=== PATIENT | male | born 1970 ===

== ENCOUNTER 2018-02-19 23:49 | Inpatient (IN) | payer SELFPAY ==
[2018-02-20 01:48] LABS: BASO % 0.6 % (0.0-2.0); EOS # 0.1 K/uL (0.0-0.7); EOS % 1.8 % (0.0-4.0); HEMOGLOBIN 16.7 g/dL (12.0-18.0); LYMPH # 1.4 K/uL (1.0-4.3); LYMPH % 18.9 % (20.0-40.0); MEAN CORPUSCULAR HEMOGLOBIN 31.9 pg (27.0-31.0); MEAN CORPUSCULAR HGB CONC 32.5 g/dL (33.0-37.0); MONO # 0.4 K/uL (0.0-0.8); MONO % 4.8 % (0.0-10.0); NEUT # 5.4 K/uL (1.8-7.0); NEUT % 73.9 % (50.0-75.0); NRBC % 0.1 % (0.0-0.0); RBC 5.25 Mil/uL (4.40-5.90); WHITE BLOOD COUNT 7.3 K/uL (4.8-10.8)
--- NOTE | 2018-02-20 01:56 | ED PDOC ---
HPI: Chest Pain Time Seen by Provider: 02/20/18 00:26 Chief Complaint (Nursing): Chest Pain Chief Complaint (Provider): coughing up blood History Per: Patient History/Exam Limitations: no limitations Alleviating Factors: None Additional Complaint(s): 47 y/o Male with hx of Protein S deficiency on Xarelto who presents to ED c/o hemoptysis x 3 days. Pt states that he was diagnosed with PE and DVT while on vacation about 6 months ago in [place] at which time he underwent what he believes was an embolization. He presented with hemoptysis, mild SOB and Right sided posterior chest/back pain. He had CT with IV contrast and had anaphylaxis to the contrast at that time requiring intubation. He was started on coumadin but it was difficult to get his blood so he was switched to Xarelto [address] His chest pain had subsided but returned 3 days ago at the same time that he began having hemoptysis. He states it is worse with deep breathing. He has had several episodes of cough with hemoptysis since that time. Admits to intermittent palpitations but denies dizziness, syncope, substernal chest pain, hematemesis. He took Tylenol at about 12am for the chest pain. Past Medical History Vital Signs: Last Vital Signs Temp 98.4 F 02/19/18 23:53 Pulse 100 H 02/19/18 23:53 Resp 18 02/19/18 23:53 BP Pulse Ox 99 02/19/18 23:53 - Allergies Allergies/Adverse Reactions: Allergies Allergy/AdvReac Type Severity Reaction Status Date / Time Iodine and Iodide Containing Allergy ANAPHYLAXIS Verified 02/19/18 23:58 Produc Physical Exam - Reviewed Nursing Documentation Reviewed: Yes Vital Signs Reviewed: Yes - Physical Exam Appears: Positive for: Uncomfortable (actively having mild hemoptysis) Head Exam: Positive for: ATRAUMATIC Skin: Positive for: Normal Color Eye Exam: Positive for: Normal appearance Neck: Positive for: Normal Cardiovascular/Chest: Positive for: Regular Rate, Rhythm Respiratory: Positive for: Normal Breath Sounds (distant breath sounds) Gastrointestinal/Abdominal: Positive for: Normal Exam Back: Positive for: Normal Inspection Neurologic/Psych: Positive for: Alert, Oriented - Laboratory Results Result Diagrams: 02/20/18 01:44 02/20/18 01:44 - ECG O2 Sat by Pulse Oximetry: 99 Medical Decision Making Medical Decision Making: Chest CT FINDINGS: Multifocal ground glass densities in the left upper lobe and bilateral lower lobes. Normal unenhanced main pulmonary artery and right and left pulmonary arteries. Normal bilateral peripheral pulmonary arteries. Normal thoracic aorta and visualized great vessels. There is no demonstrated aortic aneurysm. Normal heart and pericardium. Normal mediastinum. Normal hilar regions. Normal visualized trachea and bronchi. The lungs are well expanded. Normal pulmonary parenchyma. Normal pleura. Normal chest wall structures. Normal osseous structures. IVC filter is seen. IMPRESSION: Multifocal faint ground glass densities in the left upper lobe and bilateral lower lobes. Findings can be secondary to aspiration of blood in this patient with a history of hemoptysis. Disposition - Disposition Forms: [employer] (Amharic)
[2018-02-20 01:57] LABS: ALB/GLOB RATIO 1.4 (1.0-2.1); ALBUMIN 4.7 g/dL (3.5-5.0); ALT/SGPT 25 U/L (21-72); AST/SGOT 32 U/L (17-59); BLOOD UREA NITROGEN 12 mg/dl (9-20); CALCIUM 9.7 mg/dL (8.4-10.2); GFR NON-AFRICAN AMERICAN > 60
[2018-02-20] MEDS ORDERED: Clindamycin in D5W 300 MG/50 ML BAG IVPB STA (03:40)
[2018-02-20] MEDS ORDERED: Piperacillin/Tazobact 3.375 GM in Sodium Chloride 0.9% 100 ML IVPB SCH (10:15)
[2018-02-20] MEDS ORDERED: Morphine 4 MG/ML VIAL ONE (11:47)
[2018-02-20 13:53] LABS: BASO # 0.1 K/uL (0.0-0.2); BASO % 0.9 % (0.0-2.0); EOS # 0.2 K/uL (0.0-0.7); EOS % 2.3 % (0.0-4.0); HEMOGLOBIN 15.6 g/dL (12.0-18.0); LYMPH # 1.2 K/uL (1.0-4.3); LYMPH % 17.3 % (20.0-40.0); MEAN CELL VOLUME 97.7 fl (80.0-94.0); MEAN CORPUSCULAR HEMOGLOBIN 31.9 pg (27.0-31.0); MEAN CORPUSCULAR HGB CONC 32.7 g/dL (33.0-37.0); MONO # 0.4 K/uL (0.0-0.8); MONO % 6.4 % (0.0-10.0); NEUT # 4.9 K/uL (1.8-7.0); NEUT % 73.1 % (50.0-75.0); NRBC % 0.2 % (0.0-0.0); RBC 4.89 Mil/uL (4.40-5.90); RED CELL DISTRIBUTION WIDTH 14.2 % (11.5-14.5); WHITE BLOOD COUNT 6.7 K/uL (4.8-10.8)
--- NOTE | 2018-02-20 14:23 | CT ---
Date of service: 02/20/2018 PROCEDURE: CT Chest without contrast HISTORY: hemoptysis COMPARISON: None available. TECHNIQUE: Contiguous axial images were obtained through the chest without intravenous contrast enhancement. Sagittal and coronal reconstructions were performed. Radiation dose: Total exam DLP = 574.09 mGy-cm. This CT exam was performed using one or more of the following dose reduction techniques: Automated exposure control, adjustment of the mA and/or kV according to patient size, and/or use of iterative reconstruction technique. FINDINGS: LUNGS: The lungs are well inflated. There is dependent atelectasis in the lung bases. There is a small calcified granuloma in the left lung base. There is multifocal patchy ground-glass attenuation in the left upper lobe. MEDIASTINUM: Unremarkable thoracic aorta. No aneurysm. Normal sized heart. Main pulmonary artery unremarkable. No vascular congestion. No lymphadenopathy. No aortic atherosclerotic calcification. PLEURA: No pleural fluid. No pneumothorax. BONES: No fracture. No destructive lesion. Multilevel degenerative changes in the lower thoracic spine. UPPER ABDOMEN: Grossly unremarkable. OTHER FINDINGS: Incompletely imaged is an IVC filter.. IMPRESSION: Multifocal patchy ground-glass attenuation in the left upper lobe which may represent nonspecific infection/inflammation, alveolar edema or pulmonary hemorrhage. Follow-up after medical management is recommended to ensure complete resolution. A preliminary report was provided by [facility]. There is addition of differential diagnosis in the impression. The final report is tagged to the PA review folder.
--- NOTE | 2018-02-20 15:42 | RAD ---
Date of service: 02/20/2018 HISTORY: hemoptysis, hx IVC filter-assess placement COMPARISON: None available. FINDINGS: BOWEL: Norm there is moderate amount of stool in the colon and rectum. No bowel dilatation. BONES: Normal. OTHER FINDINGS: An IVC filter remains in place. IMPRESSION: Constipation. Nonobstructive bowel gas pattern.
[2018-02-20] MEDS: Piperacillin/Tazobact 3.375 GM in Sodium Chloride 0.9% 100 ML IVPB SCH ×2 (16:16→21:00)
--- NOTE | 2018-02-20 16:31 | US ---
Date of service: 02/20/2018 PROCEDURE: Bilateral lower extremity venous duplex Doppler. HISTORY: hx of DVT/PE, on Xarelto COMPARISON: None available. TECHNIQUE: Bilateral common femoral, superficial femoral, popliteal and posterior tibial veins were evaluated. Flow was assessed with color Doppler, compressibility, assessment of phasic flow and augmentation response. FINDINGS: COMMON FEMORAL VEIN: Right CFV: Unremarkable. Left CFV: Unremarkable. SUPERFICIAL FEMORAL VEIN: Right SFV: Unremarkable. Left SFV: Unremarkable. POPLITEAL VEIN: Right Popliteal: Unremarkable. Left Popliteal: Unremarkable. POSTERIOR TIBIAL VEIN: Right PTV: Unremarkable. Left PTV: Unremarkable. OTHER FINDINGS: None. IMPRESSION: No evidence of deep venous thrombosis.
[2018-02-20] MEDS: Morphine 4 MG/ML VIAL IVP PRN ×2 (18:07→22:50)
--- NOTE | 2018-02-20 21:04 | CP.PCM.CON ---
History of Present Illness - History of Present Illness History of Present Illness: 47 year old male with a history of Past Patient History - Past Medical History & Family History Past Medical History?: Yes - Past Social History Smoking Status: Heavy Smoker > 10 Cigarettes Daily - CARDIAC Hx Cardiac Disorders: No - PULMONARY Hx Respiratory Disorders: Yes Hx Pulmonary Embolism: Yes - NEUROLOGICAL Hx Neurological Disorder: No - HEENT Hx HEENT Problems: No - RENAL Hx Chronic Kidney Disease: No - ENDOCRINE/METABOLIC Hx Endocrine Disorders: No - HEMATOLOGICAL/ONCOLOGICAL Hx Blood Disorders: Yes (protein S deficiency) Hx AIDS: No Hx Human Immunodeficiency Virus (HIV): No Other/Comment: DVT - INTEGUMENTARY Hx Dermatological Problems: No - MUSCULOSKELETAL/RHEUMATOLOGICAL Hx Musculoskeletal Disorders: No Hx Falls: No - GASTROINTESTINAL Hx Gastrointestinal Disorders: No - GENITOURINARY/GYNECOLOGICAL Hx Genitourinary Disorders: No - PSYCHIATRIC Hx Psychophysiologic Disorder: Yes Hx Anxiety: Yes Hx Substance Use: No - SURGICAL HISTORY Hx Surgeries: Yes Other/Comment: IVC filter insertion - ANESTHESIA Hx Anesthesia: Yes Hx Anesthesia Reactions: No Hx Malignant Hyperthermia: No Has any member of the family had a problem w/ anesthesia?: No Meds Allergies/Adverse Reactions: Allergies Allergy/AdvReac Type Severity Reaction Status Date / Time Iodine and Iodide Containing Allergy ANAPHYLAXIS Verified 02/19/18 23:58 Produc - Medications Medications: Current Medications Acetaminophen (Tylenol 325mg Tab) 650 mg PO Q6 PRN PRN Reason: Pain, Mild (1-3) Piperacillin Sod/Tazobactam (Sod 3.375 gm/ Sodium Chloride) 100 mls @ 100 mls/hr IVPB Q6 AFIA; Protocol Last Admin: 02/20/18 21:00 Dose: 100 mls/hr Morphine Sulfate (Morphine) 2 mg IVP Q4 PRN PRN Reason: Pain, severe (8-10) Last Admin: 02/20/18 18:07 Dose: 2 mg Morphine Sulfate (Morphine) 1 mg IVP Q4 PRN PRN Reason: Pain, moderate (4-7) Results - Vital Signs Recent Vital Signs: Last Vital Signs Temp 98.2 F 02/20/18 20:13 Pulse 63 02/20/18 20:13 Resp 18 02/20/18 20:13 BP 115/72 02/20/18 20:13 Pulse Ox 97 02/20/18 20:13 - Labs Result Diagrams: 02/21/18 04:30 02/21/18 04:30 Labs: Laboratory Results - last 24 hr 02/20/18 02/20/18 02/20/18 01:44 01:44 01:44 WBC 7.3 RBC 5.25 Hgb 16.7 Hct 51.5 H MCV 98.0 H MCH 31.9 H MCHC 32.5 L RDW 14.0 Plt Count 254 MPV 8.0 Neut % (Auto) 73.9 Lymph % (Auto) 18.9 L [place] % (Auto) 4.8 Eos % (Auto) 1.8 Baso % (Auto) 0.6 Neut # (Auto) 5.4 Lymph # (Auto) 1.4 [place] # (Auto) 0.4 Eos # (Auto) 0.1 Baso # (Auto) 0.0 Sodium 141 Potassium 3.9 Chloride 105 Carbon Dioxide 25 Anion Gap 15 BUN 12 Creatinine 1.0 Est GFR ( Amer) > 60 Est GFR (Non-Af Amer) > 60 Random Glucose 90 Calcium 9.7 Total Bilirubin 0.2 AST 32 ALT 25 Alkaline Phosphatase 93 Total Protein 7.9 Albumin 4.7 Globulin 3.2 Albumin/Globulin Ratio 1.4 Blood Type O POSITIVE Antibody Screen Negative BBK History Checked No verified bt 02/20/18 11:26 WBC 6.7 RBC 4.89 Hgb 15.6 Hct 47.7 MCV 97.7 H MCH 31.9 H MCHC 32.7 L RDW 14.2 Plt Count 259 MPV 8.0 Neut % (Auto) 73.1 Lymph % (Auto) 17.3 L [place] % (Auto) 6.4 Eos % (Auto) 2.3 Baso % (Auto) 0.9 Neut # (Auto) 4.9 Lymph # (Auto) 1.2 [place] # (Auto) 0.4 Eos # (Auto) 0.2 Baso # (Auto) 0.1 Sodium Potassium Chloride Carbon Dioxide Anion Gap BUN Creatinine Est GFR ( Amer) Est GFR (Non-Af Amer) Random Glucose Calcium Total Bilirubin AST ALT Alkaline Phosphatase Total Protein Albumin Globulin Albumin/Globulin Ratio Blood Type Antibody Screen BBK History Checked
--- NOTE | 2018-02-20 23:53 | CP.PCM.HP ---
History of Present Illness - History of Present Illness History of Present Illness: CC: Hemoptyssi and Chest Pain Histoy of Present Illness: A 47 y/o Male with hx of Protein S deficiency on Xarelto who presents to ED c/o hemoptysis x 3 days. Pt states that he was diagnosed with PE and DVT while on vacation about 6 months ago in [place] at which time he underwent what he believes was an embolization. He presented with hemoptysis, mild SOB and Right sided posterior chest/back pain. He had CT with IV contrast and had anaphylaxis to the contrast at that time requiring intubation. He was started on coumadin but it was difficult to get his blood so he was switched to Xarelto 2 weeks later. His chest pain had subsided but returned 3 days ago at the same time that he began having hemoptysis. He states it is worse with deep breathing. He has had several episodes of cough with hemoptysis since that time. Admits to in termittent palpitations but denies dizziness, syncope, substernal chest pain, hematemesis. He took Tylenol at about 12am for the chest pain. Present on Admission - Present on Admission Any Indicators Present on Admission: No Review of Systems - Review of Systems All systems: reviewed and no additional remarkable complaints except Review of Systems: as per HPI Past Patient History - Past Medical History & Family History Past Medical History?: Yes - Past Social History Smoking Status: Heavy Smoker > 10 Cigarettes Daily Alcohol: None Drugs: Denies - CARDIAC Hx Cardiac Disorders: No - PULMONARY Hx Respiratory Disorders: Yes Hx Pulmonary Embolism: Yes - NEUROLOGICAL Hx Neurological Disorder: No - HEENT Hx HEENT Problems: No - RENAL Hx Chronic Kidney Disease: No - ENDOCRINE/METABOLIC Hx Endocrine Disorders: No - HEMATOLOGICAL/ONCOLOGICAL Hx Blood Disorders: Yes (protein S deficiency) Hx AIDS: No Hx Human Immunodeficiency Virus (HIV): No Other/Comment: DVT - INTEGUMENTARY Hx Dermatological Problems: No - MUSCULOSKELETAL/RHEUMATOLOGICAL Hx Musculoskeletal Disorders: No Hx Falls: No - GASTROINTESTINAL Hx Gastrointestinal Disorders: No - GENITOURINARY/GYNECOLOGICAL Hx Genitourinary Disorders: No - PSYCHIATRIC Hx Psychophysiologic Disorder: Yes Hx Anxiety: Yes Hx Substance Use: No - SURGICAL HISTORY Hx Surgeries: Yes Other/Comment: IVC filter insertion - ANESTHESIA Hx Anesthesia: Yes Hx Anesthesia Reactions: No Hx Malignant Hyperthermia: No Has any member of the family had a problem w/ anesthesia?: No Meds Allergies/Adverse Reactions: Allergies Allergy/AdvReac Type Severity Reaction Status Date / Time Iodine and Iodide Containing Allergy ANAPHYLAXIS Verified 02/19/18 23:58 Produc shellfish derived Allergy ANAPHYLAXIS Verified 02/21/18 12:41 Physical Exam - Constitutional Appears: No Acute Distress - Head Exam Head Exam: ATRAUMATIC, NORMAL INSPECTION, NORMOCEPHALIC - Eye Exam Eye Exam: EOMI, Normal appearance, PERRL Pupil Exam: NORMAL ACCOMODATION, PERRL - ENT Exam ENT Exam: Mucous Membranes Moist, Normal Exam - Neck Exam Neck exam: Positive for: Normal Inspection - Respiratory Exam Respiratory Exam: Clear to Auscultation Bilateral, NORMAL BREATHING PATTERN. absent: Rales, Wheezes - Cardiovascular Exam Cardiovascular Exam: REGULAR RHYTHM, +S1, +S2 - GI/Abdominal Exam GI & Abdominal Exam: Normal Bowel Sounds, Soft. absent: Tenderness - Extremities Exam Extremities exam: Positive for: normal capillary refill, normal inspection - Back Exam Back exam: NORMAL INSPECTION - Neurological Exam Neurological exam: Alert, CN II-XII Intact, Normal Gait, Oriented x3, Reflexes Normal - Psychiatric Exam Psychiatric exam: Normal Affect, Normal Mood - Skin Skin Exam: Dry, Intact, Normal Color, Warm Results - Vital Signs Recent Vital Signs: Last Vital Signs Temp 98.2 F 02/20/18 20:13 Pulse 63 02/20/18 20:13 Resp 18 02/20/18 20:13 BP 115/72 02/20/18 20:13 Pulse Ox 97 02/20/18 20:13 - Labs Result Diagrams: 02/21/18 04:30 02/21/18 04:30 Labs: Laboratory Results - last 24 hr 02/20/18 02/20/18 02/20/18 01:44 01:44 01:44 WBC 7.3 RBC 5.25 Hgb 16.7 Hct 51.5 H MCV 98.0 H MCH 31.9 H MCHC 32.5 L RDW 14.0 Plt Count 254 MPV 8.0 Neut % (Auto) 73.9 Lymph % (Auto) 18.9 L [place] % (Auto) 4.8 Eos % (Auto) 1.8 Baso % (Auto) 0.6 Neut # (Auto) 5.4 Lymph # (Auto) 1.4 [place] # (Auto) 0.4 Eos # (Auto) 0.1 Baso # (Auto) 0.0 Sodium 141 Potassium 3.9 Chloride 105 Carbon Dioxide 25 Anion Gap 15 BUN 12 Creatinine 1.0 Est GFR ( Amer) > 60 Est GFR (Non-Af Amer) > 60 Random Glucose 90 Calcium 9.7 Total Bilirubin 0.2 AST 32 ALT 25 Alkaline Phosphatase 93 Total Protein 7.9 Albumin 4.7 Globulin 3.2 Albumin/Globulin Ratio 1.4 Blood Type O POSITIVE Blood Type Confirm Antibody Screen Negative BBK History Checked No verified bt 02/20/18 02/20/18 02:56 11:26 WBC 6.7 RBC 4.89 Hgb 15.6 Hct 47.7 MCV 97.7 H MCH 31.9 H MCHC 32.7 L RDW 14.2 Plt Count 259 MPV 8.0 Neut % (Auto) 73.1 Lymph % (Auto) 17.3 L [place] % (Auto) 6.4 Eos % (Auto) 2.3 Baso % (Auto) 0.9 Neut # (Auto) 4.9 Lymph # (Auto) 1.2 [place] # (Auto) 0.4 Eos # (Auto) 0.2 Baso # (Auto) 0.1 Sodium Potassium Chloride Carbon Dioxide Anion Gap BUN Creatinine Est GFR ( Amer) Est GFR (Non-Af Amer) Random Glucose Calcium Total Bilirubin AST ALT Alkaline Phosphatase Total Protein Albumin Globulin Albumin/Globulin Ratio Blood Type Blood Type Confirm O POSITIVE Antibody Screen BBK History Checked - Imaging and Cardiology CT scan - chest Status: Report reviewed by me Additional comment: Date of service: 02/20/2018 PROCEDURE: CT Chest without contrast HISTORY: hemoptysis COMPARISON: None available. TECHNIQUE: Contiguous axial images were obtained through the chest without intravenous contrast enhancement. Sagittal and coronal reconstructions were performed. Radiation dose: Total exam DLP = 574.09 mGy-cm. This CT exam was performed using one or more of the following dose reduction techniques: Automated exposure control, adjustment of the mA and/or kV according to patient size, and/or use of iterative reconstruction technique. FINDINGS: LUNGS: The lungs are well inflated. There is dependent atelectasis in the lung bases. There is a small calcified granuloma in the left lung base. There is multifocal patchy ground-glass attenuation in the left upper lobe. MEDIASTINUM: Unremarkable thoracic aorta. No aneurysm. Normal sized heart. Main pulmonary artery unremarkable. No vascular congestion. No lymphadenopathy. No aortic atherosclerotic calcification. PLEURA: No pleural fluid. No pneumothorax. BONES: No fracture. No destructive lesion. Multilevel degenerative changes in the lower thoracic spine. UPPER ABDOMEN: Grossly unremarkable. OTHER FINDINGS: Incompletely imaged is an IVC filter.. IMPRESSION: Multifocal patchy ground-glass attenuation in the left upper lobe which may represent nonspecific infection/inflammation, alveolar edema or pulmonary hemorrhage. Follow-up after medical management is recommended to ensure co mplete resolution. 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
--- NOTE | 2018-02-20 23:53 | CP.PCM.PCO ---
Physician Communication Note - Physician Communication Note Physician Communication Note: Pt reports dyspnea, extreme pain on L lung, unable to sleep.
[2018-02-21] MEDS: Morphine 4 MG/ML VIAL IVP PRN ×4 (00:55→10:55)
[2018-02-21] MEDS: Piperacillin/Tazobact 3.375 GM in Sodium Chloride 0.9% 100 ML IVPB SCH ×2 (04:45→10:54)
[2018-02-21 06:11] LABS: BASO % 0.6 % (0.0-2.0); EOS # 0.2 K/uL (0.0-0.7); HEMOGLOBIN 15.6 g/dL (12.0-18.0); LYMPH # 1.1 K/uL (1.0-4.3); LYMPH % 19.4 % (20.0-40.0); MEAN CELL VOLUME 97.1 fl (80.0-94.0); MEAN CORPUSCULAR HEMOGLOBIN 32.4 pg (27.0-31.0); MEAN CORPUSCULAR HGB CONC 33.3 g/dL (33.0-37.0); MEAN PLATELET VOLUME 8.2 fl (7.2-11.7); MONO # 0.3 K/uL (0.0-0.8); MONO % 5.7 % (0.0-10.0); NEUT % 71.3 % (50.0-75.0); NRBC % 0.1 % (0.0-0.0); RBC 4.81 Mil/uL (4.40-5.90); RED CELL DISTRIBUTION WIDTH 14.1 % (11.5-14.5); WHITE BLOOD COUNT 5.6 K/uL (4.8-10.8)
[2018-02-21 06:22] LABS: ALB/GLOB RATIO 1.3 (1.0-2.1); ALBUMIN 3.9 g/dL (3.5-5.0); ALT/SGPT 36 U/L (21-72); AST/SGOT 26 U/L (17-59); BLOOD UREA NITROGEN 17 mg/dl (9-20); CALCIUM 9.1 mg/dL (8.4-10.2); GFR NON-AFRICAN AMERICAN > 60
--- NOTE | 2018-02-21 07:50 | CARD ---
APPROVED REPORT Date of service: 02/20/2018 EKG Measurement Heart [id number] <Conclusion> Normal sinus rhythm Normal ECG
--- NOTE | 2018-02-21 08:08 | CARD ---
APPROVED REPORT Date of service: 02/20/2018 EXAM: Two-dimensional and M-mode echocardiogram with Doppler and color Doppler. Other Information Quality : AverageRhythm : NSR INDICATION LV Function:SystolicDiastolic Hx DVT 2D DIMENSIONS IVSd1.33 (0.7-1.1cm)LVDd4.93 (3.9-5.9cm) LVOT Diameter2.44 (1.8-2.4cm)PWd1.23 (0.7-1.1cm) IVSs1.53 (0.8-1.2cm)LVDs2.57 (2.5-4.0cm) FS (%) 47.8 %PWs1.46 (0.8-1.2cm) M-Mode DIMENSIONS Left Atrium (MM)4.55 (2.5-4.0cm)IVSd1.38 (0.7-1.1cm) Aortic Root2.87 (2.2-3.7cm)LVDd3.92 (4.0-5.6cm) Aortic Cusp Exc.1.90 (1.5-2.0cm)PWd1.35 (0.7-1.1cm) IVSs1.85 cmFS (%) 45 % LVDs2.15 (2.0-3.8cm)PWs1.90 cm Aortic Valve AoV Peak Sroqbkyb278.8cm/sAoV VTI32.1cmAO Peak GR.11mmHg LVOT Peak Gsnfhvrr913.8cm/sLVOT VTI27.47cmAO Mean GR.6mmHg ALEKS (VMAX)1.09hm6ZLQ (VTI)1.86cm2 Mitral Valve MV E Ecpbiser60.4cm/sMV DECEL [id number] A Sulxruep35.6cm/s MV RPW67mcU/A ratio1.1MVA (PHT)2.95cm2 TDI Lateral E' Peak V14.34cm/sMedial E' Peak V8.15cm/sE/Lateral E'4.6 E/Medial E'8.1 LEFT VENTRICLE The left ventricle is normal size. There is mild concentric left ventricular hypertrophy. The left ventricular systolic function is normal. The estimated ejection fraction is 60-65% No regional wall motion abnormalities noted.. The left ventricular diastolic function is normal. No left ventricle thrombus noted on this study. There is no ventricular septal defect visualized. There is no left ventricular aneurysm. There is no mass noted in the left ventricle. RIGHT VENTRICLE The right ventricle is normal size. There is normal right ventricular wall thickness. The right ventricular systolic function is normal. ATRIA The left atrium is borderline dilated. The right atrium size is normal. The interatrial septum is intact with no evidence for an atrial septal defect. AORTIC VALVE The aortic valve is normal in structure. No aortic regurgitation is present. There is no aortic valvular stenosis. There is no aortic valvular vegetation. MITRAL VALVE The mitral valve is normal in structure. There is no evidence of mitral valve prolapse. There is no mitral valve stenosis. There is no mitral valve regurgitation noted. TRICUSPID VALVE The tricuspid valve is normal in structure. There is trivial tricuspid valve regurgitation noted. There is no tricuspid valve prolapse or vegetation. There is no tricuspid valve stenosis. PULMONIC VALVE The pulmonary valve is normal in structure. There is no pulmonic valvular regurgitation. There is no pulmonic valvular stenosis. GREAT VESSELS The aortic root is normal in size. The ascending aorta is normal in size. The pulmonary artery is normal. The IVC is normal in size and collapses >50% with inspiration. PERICARDIAL EFFUSION There is no pericardial effusion. There is no pleural effusion. <Conclusion> There is mild concentric left ventricular hypertrophy. The estimated ejection fraction is 60-65% The left ventricular diastolic function is normal. The left atrium is borderline dilated. The right ventricular systolic function is normal. There is trivial tricuspid valve regurgitation noted.
--- NOTE | 2018-02-21 12:19 | RAD ---
Date of service: 02/21/2018 PROCEDURE: CHEST RADIOGRAPH, 1 VIEW HISTORY: dypsnea COMPARISON: None available. FINDINGS: LUNGS: Clear. PLEURA: No pneumothorax or pleural fluid seen. CARDIOVASCULAR: No aortic atherosclerotic calcification present. Normal. OSSEOUS STRUCTURES: No significant abnormalities. VISUALIZED UPPER ABDOMEN: Normal. OTHER FINDINGS: None. IMPRESSION: No active disease.
--- NOTE | 2018-02-21 14:07 | CP.PCM.CON ---
History of Present Illness - History of Present Illness History of Present Illness: Anesthesiology Note: Anesthesiology pain service was consulted because of chest pain, generalized. This 47 year old male with history of protein S deficiency ,history of DVT on Xarelto status post IVC filter insertion, was admitted 2 days ago because of hemoptysis , accompanied by chest pain during episode of hemoptysis. Patient even has cellphone picture of hemoptysis.The pain medicines are morphine 2mg every 4 hours for pain scale 8 - 10, and 1mg every 4hours for pain scale 4 - 7. Tylenol 975 mg. every 8 hours in addition to morphine. Note the patient denies taking prescription pain medicines. Patient stated that the pain regimen is not alleviating the pain at all.The patient is awake alert and cooperative.Vital signs are normal. Physical examination is unremarkable. Assessment: Chest pain , etiology ? will refer patient to DR. Craft . Past Patient History - Past Medical History & Family History Past Medical History?: Yes - Past Social History Smoking Status: Heavy Smoker > 10 Cigarettes Daily - CARDIAC Hx Cardiac Disorders: No - PULMONARY Hx Respiratory Disorders: Yes Hx Pulmonary Embolism: Yes - NEUROLOGICAL Hx Neurological Disorder: No - HEENT Hx HEENT Problems: No - RENAL Hx Chronic Kidney Disease: No - ENDOCRINE/METABOLIC Hx Endocrine Disorders: No - HEMATOLOGICAL/ONCOLOGICAL Hx Blood Disorders: Yes (protein S deficiency) Hx AIDS: No Hx Human Immunodeficiency Virus (HIV): No Other/Comment: DVT - INTEGUMENTARY Hx Dermatological Problems: No - MUSCULOSKELETAL/RHEUMATOLOGICAL Hx Musculoskeletal Disorders: No Hx Falls: No - GASTROINTESTINAL Hx Gastrointestinal Disorders: No - GENITOURINARY/GYNECOLOGICAL Hx Genitourinary Disorders: No - PSYCHIATRIC Hx Psychophysiologic Disorder: Yes Hx Anxiety: Yes Hx Substance Use: No - SURGICAL HISTORY Hx Surgeries: Yes Other/Comment: IVC filter insertion - ANESTHESIA Hx Anesthesia: Yes Hx Anesthesia Reactions: No Hx Malignant Hyperthermia: No Has any member of the family had a problem w/ anesthesia?: No Meds Allergies/Adverse Reactions: Allergies Allergy/AdvReac Type Severity Reaction Status Date / Time Iodine and Iodide Containing Allergy ANAPHYLAXIS Verified 02/19/18 23:58 Produc shellfish derived Allergy ANAPHYLAXIS Verified 02/21/18 12:41 - Medications Medications: Current Medications Acetaminophen (Tylenol 325mg Tab) 975 mg PO Q8 PRN PRN Reason: Pain, Mild (1-3) Levofloxacin (Levaquin) 500 mg PO DAILY AFIA; Protocol Morphine Sulfate (Morphine) 2 mg IVP Q4 PRN PRN Reason: Pain, severe (8-10) Last Admin: 02/21/18 02:48 Dose: 2 mg Morphine Sulfate (Morphine) 1 mg IVP Q4 PRN PRN Reason: Pain, moderate (4-7) Last Admin: 02/21/18 10:55 Dose: 1 mg Results - Vital Signs Recent Vital Signs: Last Vital Signs Temp 97.7 F 02/21/18 12:00 Pulse 61 02/21/18 12:00 Resp 18 02/21/18 12:00 BP 119/79 02/21/18 12:00 Pulse Ox 95 02/21/18 12:00 - Labs Result Diagrams: 02/21/18 04:30 02/21/18 04:30 Labs: Laboratory Results - last 24 hr 02/20/18 02/20/18 02/21/18 02:56 11:26 04:30 WBC 6.7 5.6 RBC 4.89 4.81 Hgb 15.6 15.6 Hct 47.7 46.7 MCV 97.7 H 97.1 H MCH 31.9 H 32.4 H MCHC 32.7 L 33.3 RDW 14.2 14.1 Plt Count 259 216 MPV 8.0 8.2 Neut % (Auto) 73.1 71.3 Lymph % (Auto) 17.3 L 19.4 L [place] % (Auto) 6.4 5.7 Eos % (Auto) 2.3 3.0 Baso % (Auto) 0.9 0.6 Neut # (Auto) 4.9 4.0 Lymph # (Auto) 1.2 1.1 [place] # (Auto) 0.4 0.3 Eos # (Auto) 0.2 0.2 Baso # (Auto) 0.1 0.0 Sodium Potassium Chloride Carbon Dioxide Anion Gap BUN Creatinine Est GFR ( Amer) Est GFR (Non-Af Amer) Random Glucose Calcium Total Bilirubin AST ALT Alkaline Phosphatase Total Protein Albumin Globulin Albumin/Globulin Ratio Blood Type Confirm O POSITIVE 02/21/18 04:30 WBC RBC Hgb Hct MCV MCH MCHC RDW Plt Count MPV Neut % (Auto) Lymph % (Auto) [place] % (Auto) Eos % (Auto) Baso % (Auto) Neut # (Auto) Lymph # (Auto) [place] # (Auto) Eos # (Auto) Baso # (Auto) Sodium 139 Potassium 4.1 Chloride 105 Carbon Dioxide 27 Anion Gap 11 BUN 17 Creatinine 1.0 Est GFR ( Amer) > 60 Est GFR (Non-Af Amer) > 60 Random Glucose 95 Calcium 9.1 Total Bilirubin 0.4 AST 26 ALT 36 Alkaline Phosphatase 99 Total Protein 6.9 Albumin 3.9 Globulin 3.0 Albumin/Globulin Ratio 1.3 Blood Type Confirm
--- NOTE | 2018-02-21 23:30 | CP.PCM.CON ---
History of Present Illness - History of Present Illness History of Present Illness: Called to see a patient with Protein S def, on AC for PE 6 months ago, after a flight from [place]. Patient came to the ER for Dyspnea and Chest Pain. Pos Hemoptysis. Neg Fever nor Chills. AC is on hold, patient has a GFF. s/ Hemoptysis is less today. Some Pleuritic chest pain. CT Angio neg for filling defects in Pulmonary Arteries. Some fuzzy infiltrates in [place], probably blood. VSS Head Neg [place] Pos CARSON Heart RRR, NS1S2 Abdo: nt Ext No C,C, No Edema. Pos Smoker. Labs as below. [place] mass. Plan: Would hold of AC as per Hematology. Would allow some time go by, and if hemoptysis contintues, will do bronch. Cont present treatment. Repeat Protein S in a couple of weeks as per Hematology recommentations. Will F/u. PUD & DVT Px with Pneumatic Compression Device.. Past Patient History - Past Medical History & Family History Past Medical History?: Yes - Past Social History Smoking Status: Heavy Smoker > 10 Cigarettes Daily - CARDIAC Hx Cardiac Disorders: No - PULMONARY Hx Respiratory Disorders: Yes Hx Pulmonary Embolism: Yes - NEUROLOGICAL Hx Neurological Disorder: No - HEENT Hx HEENT Problems: No - RENAL Hx Chronic Kidney Disease: No - ENDOCRINE/METABOLIC Hx Endocrine Disorders: No - HEMATOLOGICAL/ONCOLOGICAL Hx Blood Disorders: Yes (protein S deficiency) Hx AIDS: No Hx Human Immunodeficiency Virus (HIV): No Other/Comment: DVT - INTEGUMENTARY Hx Dermatological Problems: No - MUSCULOSKELETAL/RHEUMATOLOGICAL Hx Musculoskeletal Disorders: No Hx Falls: No - GASTROINTESTINAL Hx Gastrointestinal Disorders: No - GENITOURINARY/GYNECOLOGICAL Hx Genitourinary Disorders: No - PSYCHIATRIC Hx Psychophysiologic Disorder: Yes Hx Anxiety: Yes Hx Substance Use: No - SURGICAL HISTORY Hx Surgeries: Yes Other/Comment: IVC filter insertion - ANESTHESIA Hx Anesthesia: Yes Hx Anesthesia Reactions: No Hx Malignant Hyperthermia: No Has any member of the family had a problem w/ anesthesia?: No Meds Allergies/Adverse Reactions: Allergies Allergy/AdvReac Type Severity Reaction Status Date / Time Iodine and Iodide Containing Allergy ANAPHYLAXIS Verified 02/19/18 23:58 Produc shellfish derived Allergy ANAPHYLAXIS Verified 02/21/18 12:41 - Medications Medications: Current Medications Acetaminophen (Tylenol 325mg Tab) 975 mg PO Q8 PRN PRN Reason: Pain, moderate (4-7) Last Admin: 02/21/18 22:45 Dose: 975 mg Levofloxacin (Levaquin) 500 mg PO DAILY AFIA; Protocol Results - Vital Signs Recent Vital Signs: Last Vital Signs Temp 98.2 F 02/21/18 21:00 Pulse 66 02/21/18 21:00 Resp 20 02/21/18 21:00 BP 127/74 02/21/18 21:00 Pulse Ox 96 02/21/18 21:00 - Labs Result Diagrams: 02/21/18 04:30 02/21/18 04:30 Labs: Laboratory Results - last 24 hr 02/21/18 02/21/18 04:30 04:30 WBC 5.6 RBC 4.81 Hgb 15.6 Hct 46.7 MCV 97.1 H MCH 32.4 H MCHC 33.3 RDW 14.1 Plt Count 216 MPV 8.2 Neut % (Auto) 71.3 Lymph % (Auto) 19.4 L [place] % (Auto) 5.7 Eos % (Auto) 3.0 Baso % (Auto) 0.6 Neut # (Auto) 4.0 Lymph # (Auto) 1.1 [place] # (Auto) 0.3 Eos # (Auto) 0.2 Baso # (Auto) 0.0 Sodium 139 Potassium 4.1 Chloride 105 Carbon Dioxide 27 Anion Gap 11 BUN 17 Creatinine 1.0 Est GFR ( Amer) > 60 Est GFR (Non-Af Amer) > 60 Random Glucose 95 Calcium 9.1 Total Bilirubin 0.4 AST 26 ALT 36 Alkaline Phosphatase 99 Total Protein 6.9 Albumin 3.9 Globulin 3.0 Albumin/Globulin Ratio 1.3
[2018-02-22 00:19] VITALS: RESP 18
[2018-02-22 08:20] VITALS: PULSE 63; TEMP 97.9; O2SAT 96
[2018-02-22] MEDS ORDERED: levoFLOXacin 500 MG TAB PO SCH (09:00)
--- NOTE | 2018-02-22 10:02 | CP.PCM.CON ---
History of Present Illness - History of Present Illness History of Present Illness: 47 yo with hypercoagulable state on Xarelto was admitted for hemoptysis and chest pain. This developed a few days ago, without trauma. It's in the right posterior chest, pleuritic but non reproducible by palpation. The pain is constant, but has a shooting quality that's intermittent. The coughing isn't a reflex to the pain, rather he feels something in his airway that he needs to get out, and this does cause more pain. Patient is upset that work-up has been halted. He doesn't wish to take more than Tylenol for the current pain but would like to know the source of the pain. History was difficult to obtain as he was upset about his treatment. Past Patient History - Past Medical History & Family History Past Medical History?: Yes - Past Social History Smoking Status: Heavy Smoker > 10 Cigarettes Daily - CARDIAC Hx Cardiac Disorders: No - PULMONARY Hx Respiratory Disorders: Yes Hx Pulmonary Embolism: Yes - NEUROLOGICAL Hx Neurological Disorder: No - HEENT Hx HEENT Problems: No - RENAL Hx Chronic Kidney Disease: No - ENDOCRINE/METABOLIC Hx Endocrine Disorders: No - HEMATOLOGICAL/ONCOLOGICAL Hx Blood Disorders: Yes (protein S deficiency) Hx AIDS: No Hx Human Immunodeficiency Virus (HIV): No Other/Comment: DVT - INTEGUMENTARY Hx Dermatological Problems: No - MUSCULOSKELETAL/RHEUMATOLOGICAL Hx Musculoskeletal Disorders: No Hx Falls: No - GASTROINTESTINAL Hx Gastrointestinal Disorders: No - GENITOURINARY/GYNECOLOGICAL Hx Genitourinary Disorders: No - PSYCHIATRIC Hx Psychophysiologic Disorder: Yes Hx Anxiety: Yes Hx Substance Use: No - SURGICAL HISTORY Hx Surgeries: Yes Other/Comment: IVC filter insertion - ANESTHESIA Hx Anesthesia: Yes Hx Anesthesia Reactions: No Hx Malignant Hyperthermia: No Has any member of the family had a problem w/ anesthesia?: No Meds Allergies/Adverse Reactions: Allergies Allergy/AdvReac Type Severity Reaction Status Date / Time Iodine and Iodide Containing Allergy ANAPHYLAXIS Verified 02/19/18 23:58 Produc shellfish derived Allergy ANAPHYLAXIS Verified 02/21/18 12:41 - Medications Medications: Current Medications Acetaminophen (Tylenol 325mg Tab) 975 mg PO Q8 PRN PRN Reason: Pain, moderate (4-7) Last Admin: 02/21/18 22:45 Dose: 975 mg Levofloxacin (Levaquin) 500 mg PO DAILY AFIA; Protocol Last Admin: 02/22/18 09:12 Dose: 500 mg Physical Exam - Respiratory Exam Additional comments: Chest wall nontender. Results - Vital Signs Recent Vital Signs: Last Vital Signs Temp 97.9 F 02/22/18 08:20 Pulse 63 02/22/18 08:20 Resp 18 02/22/18 08:20 BP 101/56 L 02/22/18 08:20 Pulse Ox 96 02/22/18 08:20 - Labs Result Diagrams: 02/21/18 04:30 02/21/18 04:30 Assessment & Plan - Assessment and Plan (Free Text) Assessment: 47 yo man w/ chest pain, work-up ongoing. I do not feel high dose opioids would be appropriate to treat the pain until etiology is clear. In his case, total pain control wouldn't lead to less coughing, thus side effects would outweigh the benefits. - f/u pulm and heme consults - continue Tylenol PRN, would add Neurontin for possible neuropathic component of the pain.
[2018-02-22 10:08] VITALS: BP 100/56
--- NOTE | 2018-02-22 12:13 | CP.PCM.PN ---
Subjective - Date & Time of Evaluation Date of Evaluation: 02/21/18 Time of Evaluation: 11:00 - Subjective Subjective: Seen at the bed side with Staff Radiologist. Patient was seen under different Name in the past. Seeking Narcotic Pain Medications despite patient looks comfortable. Patient refuses to give ID, and claims VTE 6 months back. However he has been complaining similar problems in 2012 and 2013 when I saw him. Patient was recognized by the Nurse, Patient advocate, and myself. I have spoken to the SPIRITUAL MINISTER about the inconsistencies coming from the patient. Pain management to evaluate the patient. Objective - Vital Signs/Intake and Output Vital Signs (last 24 hours): Temp Pulse Resp BP Pulse Ox 97.9 F 63 18 100/56 L 96 02/22/18 09:00 02/22/18 09:00 02/22/18 09:00 02/22/18 09:00 02/22/18 09:00 - Labs Labs: 02/21/18 04:30 02/21/18 04:30 - Constitutional Appears: Well, No Acute Distress - Head Exam Head Exam: ATRAUMATIC, NORMAL INSPECTION, NORMOCEPHALIC - Eye Exam Eye Exam: EOMI, Normal appearance, PERRL Pupil Exam: NORMAL ACCOMODATION, PERRL - ENT Exam ENT Exam: Mucous Membranes Moist, Normal Exam - Neck Exam Neck Exam: Full ROM, Normal Inspection. absent: Lymphadenopathy - Respiratory Exam Respiratory Exam: Clear to Ausculation Bilateral, NORMAL BREATHING PATTERN - Cardiovascular Exam Cardiovascular Exam: REGULAR RHYTHM, +S1, +S2. absent: Murmur - GI/Abdominal Exam GI & Abdominal Exam: Soft, Normal Bowel Sounds. absent: Tenderness - Extremities Exam Extremities Exam: Full ROM, Normal Capillary Refill, Normal Inspection. absent: Joint Swelling, Pedal Edema - Back Exam Back Exam: NORMAL INSPECTION - Neurological Exam Neurological Exam: Alert, Awake, CN II-XII Intact, Normal Gait, Oriented x3 - Psychiatric Exam Psychiatric exam: Normal Affect, Normal Mood - Skin Skin Exam: Dry, Intact, Normal Color, Warm Assessment and Plan (1) Chest pain Assessment & Plan: ?h/o VTE S/P IVC Filter ?Hemoptysis O2 Via NC Hold Xeralto TTE VQ scan Pulmonary, and Forest Fire Officer and Oncologist Consult Pain Medication PRN Forest Fire Officer recommended to stop Xarelto, and Protein S level in 6 weeks as an outpatient. Pulmonry Recommended to Monitor, and Bronchoscopy if Hemoptysis continues Status: Acute
--- NOTE | 2018-02-22 23:44 | CP.PCM.DIS ---
Provider - Provider Date of Admission: 02/20/18 03:39 Attending physician: Cliff Villeda MD Consults: 02/20/18 10:34 Pulmonology Consult Routine Comment: hemoptysis s/p staring xarelto, stopped coumadin Consulting Provider: Aakash Gramajo Consulting Physician: Aakash Gramajo Reason for Consult: hx PE s/p IVC filter 6 months ago, hx protein S deficiency 02/20/18 11:15 Hematology Oncology Consult Routine Comment: hemoptysis, stopped xarelto 3 days ago Consulting Provider: Taras Rosenthal Consulting Physician: Taras Rosenthal Reason for Consult: hx DVT/PE s/p IVC filter, protein S deficiency 02/20/18 13:31 Social Work Referral Routine Comment: Discharge planning Physician Instructions: Reason For Exam: Smoking cessation 02/20/18 13:32 Case Management Referral Routine Comment: Physician Instructions: Reason For Exam: Reason for Referral: Discharge Planning 02/21/18 07:46 Anesthesiology Consult Routine Comment: Consulting Provider: Miladis Tatum Consulting Physician: Miladis Tatum Reason for Consult: severe chest pain, ? hx dvt; prot c and s deficiency Time Spent in preparation of Discharge (in minutes): 25 Diagnosis - Discharge Diagnosis (1) Chest pain Status: Acute Priority: Low (2) Other hemoptysis Status: Acute Priority: Low (3) Presence of IVC filter Status: Chronic Priority: Low Comment: Patient Faked Hemoptysis in the past after he presented with a different Name- Cachorro Watson (4) H/O deep venous thrombosis Status: Resolved Priority: Low Comment: No DVT from U/s venous doppler of B/Rasheeda PARKER (5) Hx pulmonary embolism Status: Acute Priority: Low Comment: Only from History (6) Drug-seeking behavior Status: Acute Hospital Course - Lab Results Lab Results: Micro Results 02/20/18 05:00 Blood Blood Culture - Preliminary NO GROWTH AFTER 48 HOURS 02/20/18 05:50 Blood Blood Culture - Preliminary NO GROWTH AFTER 48 HOURS Most Recent Lab Values WBC 5.6 K/uL (4.8-10.8) 02/21/18 04:30 RBC 4.81 Mil/uL (4.40-5.90) 02/21/18 04:30 Hgb 15.6 g/dL (12.0-18.0) 02/21/18 04:30 Hct 46.7 % (35.0-51.0) 02/21/18 04:30 MCV 97.1 fl (80.0-94.0) H 02/21/18 04:30 MCH 32.4 pg (27.0-31.0) H 02/21/18 04:30 MCHC 33.3 g/dL (33.0-37.0) 02/21/18 04:30 RDW 14.1 % (11.5-14.5) 02/21/18 04:30 Plt Count 216 K/uL (130-400) 02/21/18 04:30 MPV 8.2 fl (7.2-11.7) 02/21/18 04:30 Neut % (Auto) 71.3 % (50.0-75.0) 02/21/18 04:30 Lymph % (Auto) 19.4 % (20.0-40.0) L 02/21/18 04:30 [place] % (Auto) 5.7 % (0.0-10.0) 02/21/18 04:30 Eos % (Auto) 3.0 % (0.0-4.0) 02/21/18 04:30 Baso % (Auto) 0.6 % (0.0-2.0) 02/21/18 04:30 Neut # (Auto) 4.0 K/uL (1.8-7.0) 02/21/18 04:30 Lymph # (Auto) 1.1 K/uL (1.0-4.3) 02/21/18 04:30 [place] # (Auto) 0.3 K/uL (0.0-0.8) 02/21/18 04:30 Eos # (Auto) 0.2 K/uL (0.0-0.7) 02/21/18 04:30 Baso # (Auto) 0.0 K/uL (0.0-0.2) 02/21/18 04:30 Sodium 139 mmol/l (132-148) 02/21/18 04:30 Potassium 4.1 MMOL/L (3.6-5.0) 02/21/18 04:30 Chloride 105 mmol/L (98-107) 02/21/18 04:30 Carbon Dioxide 27 mmol/L (22-30) 02/21/18 04:30 Anion Gap 11 (10-20) 02/21/18 04:30 BUN 17 mg/dl (9-20) 02/21/18 04:30 Creatinine 1.0 mg/dl (0.8-1.5) 02/21/18 04:30 Est GFR ( Amer) > 60 02/21/18 04:30 Est GFR (Non-Af Amer) > 60 02/21/18 04:30 Random Glucose 95 mg/dL (75-110) 02/21/18 04:30 Calcium 9.1 mg/dL (8.4-10.2) 02/21/18 04:30 Total Bilirubin 0.4 mg/dl (0.2-1.3) 02/21/18 04:30 AST 26 U/L (17-59) 02/21/18 04:30 ALT 36 U/L (21-72) 02/21/18 04:30 Alkaline Phosphatase 99 U/L (38-126) 02/21/18 04:30 Total Protein 6.9 G/DL (6.3-8.2) 02/21/18 04:30 Albumin 3.9 g/dL (3.5-5.0) 02/21/18 04:30 Globulin 3.0 gm/dL (2.2-3.9) 02/21/18 04:30 Albumin/Globulin Ratio 1.3 (1.0-2.1) 02/21/18 04:30 Blood Type O POSITIVE 02/20/18 01:44 Blood Type Confirm O POSITIVE 02/20/18 02:56 Antibody Screen Negative 02/20/18 01:44 BBK History Checked No verified bt 02/20/18 01:44 Discharge Exam - Head Exam Head Exam: ATRAUMATIC, NORMAL INSPECTION, NORMOCEPHALIC Discharge Plan - Follow Up Plan Condition: STABLE Disposition: AGAINST MEDICAL ADVICE Instructions: Deep Vein Thrombosis (Blood Clots in the Legs) (DC), Coughing up Blood Referrals: Cliff Villeda MD [Staff Provider] -
== END 2018-02-22 10:40 | disposition left against medical advice (07) | DRG 206 ==
LOC: H.ER 23:49 → H.ERHOLD 02-20 03:39 → H.TEL 02-20 08:14
PROVIDERS: ADMIT Internal Medicine; ATTEND Internal Medicine
DX: T17.998A Other foreign object in respiratory tract, part unspecified causing other injury, initial encounter (principal); R04.2 Hemoptysis; D68.59 Other primary thrombophilia; F41.9 Anxiety disorder, unspecified; F17.200 Nicotine dependence, unspecified, uncomplicated; Z76.5 Malingerer [conscious simulation]; Z86.711 Personal history of pulmonary embolism; Z86.718 Personal history of other venous thrombosis and embolism; Z91.041 Radiographic dye allergy status